=== PATIENT | female | born 1975 | race Native Hawaiian/Other Pacific Islander ===

== ENCOUNTER 2018-10-25 09:27 | Outpatient (CLI) | payer OTHER | END 2018-10-25 09:28 | disposition home or self-care (01) | LOC: C.USIC 09:27 ==

== ENCOUNTER 2018-11-06 10:00 | Outpatient (CLI) | payer OTHER | END 2018-11-06 10:01 | disposition home or self-care (01) | LOC: C.MAMMO 10:00 | DX: Z12.31 Encounter for screening mammogram for malignant neoplasm of breast (principal) ==

== ENCOUNTER 2018-12-05 09:31 | Outpatient (CLI) | payer OTHER | END 2018-12-05 09:32 | disposition home or self-care (01) | LOC: C.USIC 09:31 ==